=== PATIENT | male | born 1960 | race Two or more races ===

== ENCOUNTER 2025-05-06 22:25 | Inpatient (IN) | payer OTHER, MEDICARE ==
[~2025-05-06] VITALS: Ht 172.7 cm; Wt 97.4 kg
--- NOTE | 2025-05-06 22:58 | ED.PDOC ---
History of present illness HPI Comments 64-year-old male who came to the ER due to hyperglycemia. Patient states for the past 2 weeks has been having generalized weakness, myalgia, increased thirst and urination. Patient went to [facility] yesterday, blood sugar was 390, diagnosed with diabetes, but was sent home with no medications, was advised to go to his primary care provider. Patient able to get to the appointment with his PCP until next week, but noted that his blood sugar was 550 at home so he decided to come to the ER. Upon arrival, blood sugar here was 490 Chief Complaint: Hyperglycemia Time Seen by MD: 22:57 History of present illness: Nurses Notes Allergies: Coded Allergies: NO KNOWN ALLERGIES (Unverified , 05/06/25) Information Source: Patient Mode of Arrival: Ambulatory Timing: Days Duration: Intermittent [place]: Shaky, Sweaty Symptoms: Anxious, Shaky, Sweaty History of: Diabetes Past Medical History PAST MEDICAL HISTORY: DM Surgical History: Denies all surgeries Family History Family History: Reviewed,noncontributory to illness Social History Smoker: Non-Smoker Alcohol: Denies ETOH Use Drugs: Denies Drug Use Lives In: Home Constitutional: reports: weakness; denies: chills, diaphoresis, fatigue, fever, malaise, sweats, others EENTM: denies: blurred vision, double vision, ear bleeding, ear discharge, ear drainage, ear pain, ear ringing, eye pain, eye redness, hearing loss, mouth pain, mouth swelling, nasal discharge, nose bleeding, nose congestion, nose pain, photophobia, tearing, throat pain, throat swelling, voice changes, others Respiratory: denies: cough, hemoptysis, orthopnea, SOB at rest, shortness of breath, SOB with excertion, stridor, wheezing, others Cardiovascular: denies: chest pain, dizzy spells, diaphoresis, Dyspnea on exertion, edema, irregular heart beat, left arm pain, lightheadedness, palpitations, PND, syncope, others Gastrointestinal: denies: abdomen distended, abdominal pain, blood streaked bowels, constipated, diarrhea, dysphagia, difficulty swallowing, hematemesis, melena, nausea, poor appetite, poor fluid intake, rectal bleeding, rectal pain, vomiting, others Genitourinary: denies: burning, dysuria, flank pain, frequency, hematuria, incontinence, penile discharge, penile sore, pain, testicle pain, testicle swel ling, urgency, others Neurological: denies: dizziness, fainting, headache, left sided numbness, left sided weakness, numbness, paresthesia, pre-existing deficit, right sided numbness, right sided weakness, seizure, speech problems, tingling, tremors, weakness, others Musculoskeletal: denies: back pain, gout, joint pain, joint swelling, muscle pain, muscle stiffness, neck pain, others Integumetry: denies: bruises, change in color, change in hair/nails, dryness, laceration, lesions, lumps, rash, wounds, others Allergic/Immunocompromised: denies: Difficulty Healing, Frequent Infections, Hives, Itching, others Hematologic/Lymphatic: denies: anemia, blood clots, easy bleeding, easy bruising, swollen glands, others Endocrine: reports: excessive thirst, excessive urination; denies: excessive hunger, excessive sweating, flushing, intolerance to cold, intolerance to heat, unexplained weight gain, unexplained weight loss, others Psychiatric: denies: anxiety, bipolar disorder, depression, hopeless, panic disorder, schizophrenia, sleepless, suicidal, others Physical Exam General Appearance: No Apparent Distress, Normal HEENT: Normal ENT Inspection, Pharynx Normal, TMs Normal Neck: Full Range of Motion, Non-Tender, Normal, Normal Inspection Respiratory: Chest Non-Tender, Lungs Clear, No Accessory Muscle Use, No Respiratory Distress, Normal Breath Sounds Cardiovascular: No Edema, No JVD, No Murmur, No Gallop, Normal Peripheral Pulses, Regular Rate/Rhythm Breast Exam: Deferred Gastrointestinal: No Organomegaly, Non Tender, No Pulsatile Mass, Normal Bowel Sounds, Soft Genitalia: Deferred Pelvic: Deferred Rectal: Deferred Extremities: No calf tenderness, Normal capillary refill, Normal inspection, Normal range of motion, Non-tender, No pedal edema Musculoskeletal : Apperance: Normal Neurologic: Alert, breeding manager II-XII nml as Tested, No Motor Deficits, Normal Affect, Normal Mood, No Sensory Deficits Cerebellar Function: Normal Reflexes: Normal Skin: Dry, Normal Color, Warm Lymphatic: No Adenopathy Was a procedure done? Was a procedure done?: No Differential Diagnosis (DM) Differential Diagnosis: DKA, Hyperglycemia, UTI X-Ray, Labs, Meds, VS Vital Signs Date Time Temp Pulse Resp B/P (MAP) Pulse Ox O2 Delivery O2 Flow Rate FiO2 05/07/25 00:08 56 18 95 Room Air* 0 21 05/07/25 00:08 98.7 73 18 146/79 (101) 95 98.7 05/06/25 22:44 52 05/06/25 22:25 97.2 64 18 159/80 95 97.2 Lab Test 05/06/25 23:43 05/06/25 23:09 05/06/25 23:06 Range/Units Urine Color Colorless Yellow Urine Clarity Clear Clear Urine pH 5.5 5.0-9.0 Urine Specific [place] 1.035 1.001-1.035 Urine Protein Negative Negative Urine Ketones 1+ H Negative Urine Blood Trace H Negative /uL Urine Nitrite Negative Negative Urine Bilirubin Negative Negative Urine Urobilinogen Normal Negative mg/dL Urine Leukocyte Esterase Negative Negative /uL Urine RBC 1 0 - 3 /hpf Urine Microscopic WBC 4 H 0-3 /HPF Urine Squamous Epithelial Cells None seen <5 /hpf Urine Bacteria None seen None Seen /hpf Urine Glucose 4+ H Normal mg/dL White Blood Count 8.2 4.4-10.8 10^3/uL Red Blood Count 4.86 4.5-5.90 10^6/uL Hemoglobin 14.7 13.5-17.5 g/dL Hematocrit 42.6 41.0-53.0 % Mean Corpuscular Volume 87.7 80.0-100.0 fL Mean Corpuscular Hemoglobin 30.3 28.0-32.0 pg Mean Corpuscular Hemoglobin Concent 34.6 32.0-36.0 g/dL Red Cell Distribution Width 12.4 11.8-14.3 % Platelet Count 269 140-450 10^3/uL Mean Platelet Volume 8.1 6.9-10.8 fL Neutrophils (%) (Auto) 85.3 H 37.0-80.0 % Lymphocytes (%) (Auto) 12.2 10.0-50.0 % Monocytes (%) (Auto) 2.4 0.0-12.0 % Eosinophils (%) (Auto) 0.0 0.0-7.0 % Basophils (%) (Auto) 0.1 0.0-2.0 % Neutrophils # (Auto) 7.0 1.6-8.6 10 ^3/uL Lymphocytes # (Auto) 1.0 0.4-5.4 10 ^3/uL Monocytes # (Auto) 0.2 0-1.3 10 ^3/uL Eosinophils # (Auto) 0 0-0.8 10 ^3/uL Basophils # (Auto) 0 0-0.2 10 ^3/uL Nucleated Red Blood Cells 0.0 % Sodium Level 136 136-145 mmol/L Potassium Level 4.7 3.5-5.1 mmol/L Chloride Level 102 98-107 mmol/L Carbon Dioxide Level 23 20-31 mmol/L Anion Gap 11 5-15 Blood Urea Nitrogen 16 9-23 mg/dL Creatinine 1.11 0.700-1.30 mg/dL Glomerular Filtration Rate Calc 75 >90 mL/min BUN/Creatinine Ratio 14.4 10.0-20.0 Serum Glucose 485 *H 74-106 mg/dL Calcium Level 9.3 8.7-10.4 mg/dL Total Bilirubin 0.7 0.2-1.0 mg/dL Aspartate Amino Transferase (AST) 23 13-40 U/L Alanine Aminotransferase (ALT) 31 7-40 U/L Alkaline Phosphatase 123 H 46-116 U/L Total Protein 6.9 5.7-8.2 g/dL Albumin 4.4 3.2-4.8 g/dL Blood Gas Specimen Type Venous Blood Gas Sample Site Vbg - n/a Blood Gas Patient Temperature 37.0 Arterial Blood Date Drawn [id number] Ayan Test N/a Venous Blood pH 7.381 7.320-7.430 Venous Blood pCO2 at Patient Temp 42.0 38.0-54.0 mmHg Venous Blood pO2 at Patient Temp < 36.5 23.0-48.0 mmHg Venous Blood HCO3 24.3 22.0-29.0 mmol/L Venous Blood Base Excess -0.8 -2.0-3.0 mmol/L Blood Gas Modality Room air FiO2 % 21.0 Current Medications Medications (Trade) Dose Ordered Sig/Sulema Route Start Time Stop Time Status Last Admin Sodium Chloride 1,000 ml @ 1,000 mls/hr Q1H ONCE IV 05/06/25 23:00 05/06/25 23:59 DC 05/06/25 23:50 Time of 1ST Reevaluation: 22:53 Reevaluation 1ST: Unchanged Patient Education/Counseling: Diagnosis, Treatment Family Education/Counseling: No Family Present SEPSIS Sepsis Screen Date sepsis recognized/suspect: May 06, 2025 Time Sepsis recognized/suspect: 2224 Recent Procedure: No On Antibiotic Therapy: No Respiratory Rate >20: No Heart Rate >90: No Temp<36 C (96.8 F) or >38.3 C: No SBP <90 or MAP <65 mmHG: No New Acute Mental Status Change: No Is the patient on CPAP, BIPAP,: No Physician Orders Venous Blood Gas (05/06/25 22:52) Vital Signs Date Time Temp Pulse Resp B/P (MAP) Pulse Ox O2 Delivery O2 Flow Rate FiO2 05/07/25 00:08 56 18 95 Room Air* 0 21 05/07/25 00:08 98.7 73 18 146/79 (101) 95 98.7 05/06/25 22:44 52 05/06/25 22:25 97.2 64 18 159/80 95 97.2 Laboratory Tests Test 05/06/25 23:09 White Blood Count 8.2 10^3/uL (4.4-10.8) Medications Medications Dose Ordered Sig/Sulema Route Start Time Stop Time Status Last Admin Dose Admin Sodium Chloride 1,000 ml @ 1,000 mls/hr Q1H ONCE IV 05/06/25 23:00 05/06/25 23:59 DC 05/06/25 23:50 Departure 1 Departure Time of Disposition: 00:13 Impression: Primary Impression: Hyperglycemia Additional Impression: New onset type 2 diabetes mellitus Disposition: ADMITTED INPATIENT Admit to: Med Surg Condition: Guarded Discharged With: Self Comments 64-year-old male with very high blood sugars, polydipsia and polyuria. Patient states that he had an A1c yesterday that showed over 10. Patient appears to have new onset diabetes that is uncontrolled. Patient was given IV fluids and a little bit of insulin. Patient will need admission for supportive care and further workup. Critical Care Note Critical Care Time?: Yes (35 min-critical care time only) Critical care comment: Hyperglycemia Stability Stability form required: No Heart Score Heart Score: Heart Score Response (Comments) Value History N/A 0 EKG N/A 0 Age N/A 0 Risk Factors N/A 0 Troponin N/A 0 Total 0 I personally scribed for SHARON ABEL MD ([email or web address]) on 05/06/25 at 22:58. Electronically submitted by Ankit Murphy ([email or web address]). SHARON ABEL MD May 06, 2025 22:58
--- NOTE | 2025-05-06 22:58 | ECG ---
[facility] Test Date: 2025-05-06 Test Time: 22:44:24 Pat Name: SUSY FUCHS Department: ED Room: [address] [place] [address] Gender: M Manager Fleet: jesse : 1960 Requested By: SHARON ABEL Order Number: [id number] Reading MD: Yunior Das Measurements Intervals [place] Rate: 52 P: 18 IN: 147 QRS: -33 QRSD: 106 T: 49 QT: 438 QTc: 408 Interpretive Statements Sinus rhythm Left axis deviation Electronically Signed On 05-08-2025 18:46:37 PDT by Yunior Das Please click the below link to view image of tracing.
[2025-05-06 23:26] LABS: Hematocrit 42.6 % (41.0-53.0); Hemoglobin 14.7 g/dL (13.5-17.5); Mean Corpuscular Hemoglobin 30.3 pg (28.0-32.0); Mean Corpuscular Volume 87.7 fL (80.0-100.0); Nucleated Red Blood Cells % 0.0 %
[2025-05-06 23:48] LABS: Alanine Aminotransferase 31 U/L (7-40); Albumin 4.4 g/dL (3.2-4.8); Anion Gap 11 (5-15); BUN/Creatinine Ratio 14.4 (10.0-20.0); Bilirubin, Total 0.7 mg/dL (0.2-1.0); Blood Urea Nitrogen 16 mg/dL (9-23); Calcium 9.3 mg/dL (8.7-10.4); Carbon Dioxide 23 mmol/L (20-31); Chloride 102 mmol/L (98-107); Potassium 4.7 mmol/L (3.5-5.1); Sodium 136 mmol/L (136-145); Total Protein 6.9 g/dL (5.7-8.2)
[2025-05-06 23:49] LABS: Alkaline Phosphatase 123 U/L (46-116)
[2025-05-06] MEDS: SODIUM CHLORIDE 0.9% 1,000 ML IV ONE (23:50)
[2025-05-06 23:51] LABS: Glucose 485 mg/dL (74-106)
[2025-05-06 23:56] LABS: Urine Protein, UAD Negative (Negative)
[2025-05-07] VITALS (7 sets, daily range): BP systolic 112–171; BP diastolic 60–79; PULSE 42–60; RESP 12–20; TEMP 97.2–98.2; O2SAT 94–95
[2025-05-07] MEDS: InsuLIN REG 1unit/0.01ml Soln (100units/ml) SC ONE (01:31)
[2025-05-07] MEDS ORDERED: ONDANSETRON HCL 4 MG/2 ML VIAL IV PRN (02:30)
[2025-05-07] MEDS ORDERED: DEXTROSE (50%) 50ML SYRG IV PRN (02:30)
[2025-05-07] MEDS ORDERED: HYDROcodone-ACET 5/325MG TAB PO PRN (02:30)
--- NOTE | 2025-05-07 02:57 | DVHHP2 ---
History of Present Illness Reason for Visit: New onset type 2 diabetes mellitus History of Present Illness The patient is a 64-year-old male with past medical history of diabetes mellitus 2 days ago presented to [facility] ED for evaluation of elevated blood sugar. Patient went to [facility] yesterday, blood sugar was 390, diagnosed with initial diabetes, but was sent home with no medications, was advised to go to his primary care provider. Patient was unable to get to the appointment with his PCP until next week, but noted that his blood sugar was 550 at home with associated increased thirst, urination, generalized weakness, and myalgia, so he decided to come to the ER. Patient was seen and evaluated in the ED, laboratory data shows WBC 8.2, platelets 269, sodium 136, potassium 4.1, BUN 16, creatinine 1.11, glucose 485, anion gap 11, calcium 9.3, blood pressure 146/79, heart rate 72, temperature 98.7 F, O2 saturation 96% on room air. Please see medication orders section in the computer. On my assessment, patient denied chest pain, no headache, dizziness, diaphoresis, shortness of breaths, no abdominal pain, diarrhea, nausea, vomiting, fever, no chills. Patient was admitted for further evaluation and medical management. Past Medical History DM Past Surgical History Denies all surgeries Family History Reviewed, noncontributory to the management of this case. Past Social History The patient lives at home, denies smoking, alcohol or illicit drugs abuse. Review of Systems Constitutional: Yes: Weakness; No: Fever, Chills, Sweats, Malaise, Other Eyes: No: Pain, Vision change, Conjunctivae inflammation, Eyelid inflammation, Other, Redness ENT: No: Ear pain, Ear discharge, Nose pain, Nose discharge, Nose congestion, Mouth pain, Mouth swelling, Throat pain, Throat swelling, Other Respiratory: No: Cough, Dry, Shortness of breath, SOB with excertion, Wheezing, Hemoptysis, Pleuritic Pain, Sputum, Wheezing, Other Cardiovascular: No: Chest Pain, Palpitations, Orthopnea, Paroxysmal Noc. Dyspnea, Edema, Lt Headedness, Other Gastrointestinal: No: Nausea, Vomiting, Abdominal Pain, Diarrhea, Constipation, Melena, Hematochezia, Other Genitourinary: No Dysuria, No Frequency, No Incontinence, No Hematuria, No Retention, No Other Musculoskeletal: No: other, neck pain, shoulder pain, arm pain, back pain, hand pain, leg pain, foot pain Skin: No: Rash, Lesions, Jaundice, Bruising, Other Neurological: No: Weakness, Numbness, Incoordination, Change in speech, Confusion, Seizures, Other Other Endocrine: reports: excessive thirst, excessive urination; denies: excessive hunger, excessive sweating, flushing, intolerance to cold, intolerance to heat, unexplained weight gain, unexplained weight loss, others Allergies: Coded Allergies: NO KNOWN ALLERGIES (Unverified , 05/06/25) Medications Current Medications Medications Dose Ordered Sig/Sulema Route Start Time Stop Time Status Last Admin Dose Admin Diagnostic Test (Pha) 1 strip IQ4HR 05/07/25 04:00 Insulin Human Regular IQ4HR SC 05/07/25 04:00 Dextrose 50 ml UD PRN IV 05/07/25 02:30 Sodium Chloride 1,000 ml @ 60 mls/hr [id number] IV 05/07/25 02:30 Acetaminophen/ Hydrocodone Bitart 1 tab Q4HP PRN PO 05/07/25 02:30 Ondansetron HCl 4 mg Q4HP PRN IV 05/07/25 02:30 Docusate Sodium 100 mg BIDPRN PRN PO 05/07/25 02:30 Acetaminophen 650 mg Q6HP PRN PO 05/07/25 02:30 Exam Vital Signs Vital Signs Date Time Temp Pulse Resp B/P (MAP) Pulse Ox O2 Delivery O2 Flow Rate FiO2 05/07/25 02:47 97.8 52 14 158/80 (106) 95 97.8 05/07/25 00:08 Room Air* 0 21 General Appearance: Alert, Oriented X3, Cooperative, No acute distress HEENT: Atraumatic, PERRLA, EOMI, Mucous membr. moist/pink Respiratory: Clear to auscultation, Normal air movement Cardiovascular: Regular rate, Normal S1, Normal S2, No murmurs Abdominal: Normal bowel sounds, Soft, No tenderness, No hepatospenomegaly, No masses Extremities: No clubbing, No cyanosis, No edema, Normal pulses, No tenderness/swelling Skin: No rashes, No breakdown, No significant lesion Neuro: Normal speech, Normal tone, Sensation intact, Cranial nerves 3-12 NL, Reflexes 2+, Other (Generalized weakness) Psych/Mental Status: Mental status NL, Mood NL Labs/Xrays Labs Test 05/07/25 01:29 05/06/25 23:43 05/06/25 23:09 05/06/25 23:06 Range/Units POC Glucose 358 H 70-106 mg/dl Urine Color Colorless Yellow Urine Clarity Clear Clear Urine pH 5.5 5.0-9.0 Urine Specific [place] 1.035 1.001-1.035 Urine Protein Negative Negative Urine Ketones 1+ H Negative Urine Blood Trace H Negative /uL Urine Nitrite Negative Negative Urine Bilirubin Negative Negative Urine Urobilinogen Normal Negative mg/dL Urine Leukocyte Esterase Negative Negative /uL Urine RBC 1 0 - 3 /hpf Urine Microscopic WBC 4 H 0-3 /HPF Urine Squamous Epithelial Cells None seen <5 /hpf Urine Bacteria None seen None Seen /hpf Urine Glucose 4+ H Normal mg/dL White Blood Count 8.2 4.4-10.8 10^3/uL Red Blood Count 4.86 4.5-5.90 10^6/uL Hemoglobin 14.7 13.5-17.5 g/dL Hematocrit 42.6 41.0-53.0 % Mean Corpuscular Volume 87.7 80.0-100.0 fL Mean Corpuscular Hemoglobin 30.3 28.0-32.0 pg Mean Corpuscular Hemoglobin Concent 34.6 32.0-36.0 g/dL Red Cell Distribution Width 12.4 11.8-14.3 % Platelet Count 269 140-450 10^3/uL Mean Platelet Volume 8.1 6.9-10.8 fL Neutrophils (%) (Auto) 85.3 H 37.0-80.0 % Lymphocytes (%) (Auto) 12.2 10.0-50.0 % Monocytes (%) (Auto) 2.4 0.0-12.0 % Eosinophils (%) (Auto) 0.0 0.0-7.0 % Basophils (%) (Auto) 0.1 0.0-2.0 % Neutrophils # (Auto) 7.0 1.6-8.6 10 ^3/uL Lymphocytes # (Auto) 1.0 0.4-5.4 10 ^3/uL Monocytes # (Auto) 0.2 0-1.3 10 ^3/uL Eosinophils # (Auto) 0 0-0.8 10 ^3/uL Basophils # (Auto) 0 0-0.2 10 ^3/uL Nucleated Red Blood Cells 0.0 % Sodium Level 136 136-145 mmol/L Potassium Level 4.7 3.5-5.1 mmol/L Chloride Level 102 98-107 mmol/L Carbon Dioxide Level 23 20-31 mmol/L Anion Gap 11 5-15 Blood Urea Nitrogen 16 9-23 mg/dL Creatinine 1.11 0.700-1.30 mg/dL Glomerular Filtration Rate Calc 75 >90 mL/min BUN/Creatinine Ratio 14.4 10.0-20.0 Serum Glucose 485 *H 74-106 mg/dL Calcium Level 9.3 8.7-10.4 mg/dL Total Bilirubin 0.7 0.2-1.0 mg/dL Aspartate Amino Transferase (AST) 23 13-40 U/L Alanine Aminotransferase (ALT) 31 7-40 U/L Alkaline Phosphatase 123 H 46-116 U/L Total Protein 6.9 5.7-8.2 g/dL Albumin 4.4 3.2-4.8 g/dL Blood Gas Specimen Type Venous Blood Gas Sample Site Vbg - n/a Blood Gas Patient Temperature 37.0 Arterial Blood Date Drawn [id number] Ayan Test N/a Venous Blood pH 7.381 7.320-7.430 Venous Blood pCO2 at Patient Temp 42.0 38.0-54.0 mmHg Venous Blood pO2 at Patient Temp < 36.5 23.0-48.0 mmHg Venous Blood HCO3 24.3 22.0-29.0 mmol/L Venous Blood Base Excess -0.8 -2.0-3.0 mmol/L Blood Gas Modality Room air FiO2 % 21.0 SEPSIS Sepsis Screen Date sepsis recognized/suspect: May 06, 2025 Time Sepsis recognized/suspect: 2224 Recent Procedure: No On Antibiotic Therapy: No Respiratory Rate >20: No Heart Rate >90: No Temp<36 C (96.8 F) or >38.3 C: No SBP <90 or MAP <65 mmHG: No New Acute Mental Status Change: No Is the patient on CPAP, BIPAP,: No Physician Orders Venous Blood Gas (05/06/25 22:52) Hemoglobin A1c (05/07/25 02:16) Complete Blood Count (05/07/25 04:00) Comprehensive Metabolic Panel (05/07/25 04:00) Consistent Carb(Ccho)Diabetes (05/07/25 Breakfast) Glucose Blood (Accu-Chek Comfort Curve T (05/07/25 04:00) Insulin R (Human) (Insulin R) (05/07/25 04:00) Dextrose 50% Syringe (05/07/25 02:30) Allergies (05/07/25 02:16) Code Status (05/07/25 02:16) Sodium Chloride 0.9% (05/07/25 02:30) Oxygen Per Hour (05/07/25 02:16) Hydrocodone-Acet 5/325mg Tab ([place] 5/32 (05/07/25 02:30) Ondansetron Hcl (Zofran) (05/07/25 02:30) Docusate Sodium Capsule (Colace Capsule) (05/07/25 02:30) Fall Risk Precautions In Place QSHIFT (05/07/25 02:16) Complete Blood Count (05/08/25 04:00) Comprehensive Metabolic Panel (05/08/25 04:00) Condition: Serious (05/07/25 02:16) Acetaminophen Tablet (Tylenol Tablet) (05/07/25 02:30) Maintain Bed Rest (05/07/25 02:16) Sequential Compression Device (05/07/25 ) Vital Signs Date Time Temp Pulse Resp B/P (MAP) Pulse Ox O2 Delivery O2 Flow Rate FiO2 05/07/25 02:47 97.8 52 14 158/80 (106) 95 97.8 05/07/25 00:08 56 18 95 Room Air* 0 21 05/07/25 00:08 98.7 73 18 146/79 (101) 95 98.7 05/06/25 22:44 52 05/06/25 22:25 97.2 64 18 159/80 95 97.2 Laboratory Tests Test 05/06/25 23:09 White Blood Count 8.2 10^3/uL (4.4-10.8) Medications Medications Dose Ordered Sig/Sulema Route Start Time Stop Time Status Last Admin Dose Admin Insulin Human Regular 2 units ONCE ONCE SC 05/06/25 23:00 05/06/25 23:01 DC 05/07/25 01:31 2 UNITS Sodium Chloride 1,000 ml @ 1,000 mls/hr Q1H ONCE IV 05/06/25 23:00 05/06/25 23:59 DC 05/06/25 23:50 1,000 MLS/HR Assessment/Plan Assessment/Plan Hyperglycemia Generalized weakness New onset type 2 diabetes mellitus Plan 1. Admit to telemetry unit 2. Breathing treatment 3. Pain control management 4. Management of fluids and electrolytes 5. Consultation for hospitalist/dietary consult 6. Diagnostic tests chest x-ray 7. DVT prophylaxis-on SCDs 8. Repeat labs CBC, CMP in a.m. 9. Continue with current medical management 10. Treatment plan discussed with patient and RN. Patient verbalized understanding. Plan discussed with: Patient, Other (RN) My Orders Orders - GAMAL SNIDER DNP Procedure Category Date Status Time Hemoglobin A1c LAB 05/07/25 Logged 02:16 Complete Blood Count LAB 05/07/25 Logged 04:00 Comprehensive LAB 05/07/25 Logged Metabolic Panel 04:00 Consistent DIET 05/07/25 Transmitted Carb(Ccho)Diabetes Breakfast Glucose Blood PHA 05/07/25 In Process (Accu-Chek Comfort 04:00 Insulin R (Human) PHA 05/07/25 In Process (Insulin R) 04:00 Dextrose 50% Syringe PHA 05/07/25 In Process 02:30 Allergies RICHARD 05/07/25 In Process 02:16 Code Status CODE 05/07/25 Transmitted 02:16 Sodium Chloride 0.9% PHA 05/07/25 In Process 02:30 Oxygen Per Hour RT 05/07/25 Transmitted 02:16 Hydrocodone-Acet PHA 05/07/25 In Process 5/325mg Tab ([place] 02:30 Ondansetron Hcl PHA 05/07/25 In Process (Zofran) 02:30 Docusate Sodium PHA 05/07/25 In Process Capsule (Colace 02:30 Fall Risk Precautions RICHARD 05/07/[address] 02:16 Complete Blood Count LAB 05/08/25 Verified 04:00 Comprehensive LAB 05/08/25 Verified Metabolic Panel 04:00 Condition: Serious RICHARD 05/07/25 In Process 02:16 Acetaminophen Tablet PHA 05/07/25 In Process (Tylenol Tablet) 02:30 Maintain Bed Rest RICHARD 05/07/25 In Process 02:16 Sequential RICHARD 05/07/25 In Process Compression Device Problem List: (1) Hyperglycemia (2) Generalized weakness (3) New onset type 2 diabetes mellitus Date of Service: May 07, 2025 Billing Provider: GAMAL SNIDER DNP Common Visit Codes: [id number] INP/OBS CARE (HIGH) GAMAL SNIDER DNP May 07, 2025 02:57
[2025-05-07] MEDS ORDERED: NITROGLYCERIN 0.4 MG SL TAB SL PRN (03:00)
[2025-05-07] MEDS ORDERED: MORPHINE SULFATE INJ 2 MG/ml SYRG IV PRN (03:00)
[2025-05-07] MEDS: InsuLIN REG 1unit/0.01ml Soln (100units/ml) SC SCH (04:00)
[2025-05-07] MEDS: ACCU-CHEK COMFORT CURVE STRIP VI SCH (04:00)
[2025-05-07] MEDS: SODIUM CHLORIDE 0.9% 1,000 ML IV SCH (05:36)
[2025-05-07] MEDS: ACETAMINOPHEN 325 MG TAB PO PRN (05:44)
[2025-05-07 06:05] LABS: Hematocrit 41.1 % (41.0-53.0); Hemoglobin 14.4 g/dL (13.5-17.5); Mean Corpuscular Hemoglobin 30.1 pg (28.0-32.0); Mean Corpuscular Volume 86.0 fL (80.0-100.0); Nucleated Red Blood Cells % 0.1 %
[2025-05-07 06:23] LABS: Alanine Aminotransferase 29 U/L (7-40); Albumin 4.4 g/dL (3.2-4.8); Alkaline Phosphatase 107 U/L (46-116); Anion Gap 12 (5-15); BUN/Creatinine Ratio 12.6 (10.0-20.0); Blood Urea Nitrogen 13 mg/dL (9-23); Calcium 9.3 mg/dL (8.7-10.4); Carbon Dioxide 25 mmol/L (20-31); Chloride 103 mmol/L (98-107); Glucose 337 mg/dL (74-106); Potassium 4.5 mmol/L (3.5-5.1); Sodium 140 mmol/L (136-145); Total Protein 7.1 g/dL (5.7-8.2)
[2025-05-07 06:24] LABS: Bilirubin, Total 0.9 mg/dL (0.2-1.0)
[2025-05-07] MEDS ORDERED: PANT40TA2 PO (12:05)
[2025-05-07] MEDS ORDERED: CHOL1TAB30 PO (12:06)
[2025-05-07] MEDS ORDERED: METO-289 PO (12:07)
[2025-05-07] MEDS ORDERED: CLOP75TA70 PO (12:08)
[2025-05-07] MEDS ORDERED: AMLO1TAB22 PO (12:08)
[2025-05-07] MEDS ORDERED: ATOR-47 PO (12:10)
[2025-05-07] MEDS ORDERED: ONDA-155 PO (12:11)
[2025-05-07] MEDS ORDERED: CLON-853 PO (12:12)
[2025-05-07] MEDS ORDERED: CLON-1003 PO (12:14)
[2025-05-07] MEDS ORDERED: QUET100T47 PO (12:15)
[2025-05-07] MEDS ORDERED: MECL-90 PO (12:16)
--- NOTE | 2025-05-07 15:07 | DVHPN2 ---
Changes from previous H/P or p: No Changes Objective Vitals Vital Signs Date Time Temp Pulse Resp B/P (MAP) Pulse Ox O2 Delivery O2 Flow Rate FiO2 05/07/25 12:33 171/79 05/07/25 09:00 98.2 60 12 95 98.2 05/07/25 00:08 Room Air* 0 21 Medications Current Medications Medications Dose Ordered Sig/Sulema Route Start Time Stop Time Status Last Admin Dose Admin Diagnostic Test (Pha) 1 strip IQ4HR 05/07/25 04:00 05/07/25 12:34 1 STRIP Insulin Human Regular IQ4HR SC 05/07/25 04:00 05/07/25 12:41 12 UNITS Dextrose 50 ml UD PRN IV 05/07/25 02:30 Sodium Chloride 1,000 ml @ 60 mls/hr [id number] IV 05/07/25 02:30 05/07/25 05:36 60 MLS/HR Acetaminophen/ Hydrocodone Bitart 1 tab Q4HP PRN PO 05/07/25 02:30 Ondansetron HCl 4 mg Q4HP PRN IV 05/07/25 02:30 Docusate Sodium 100 mg BIDPRN PRN PO 05/07/25 02:30 Acetaminophen 650 mg Q6HP PRN PO 05/07/25 02:30 05/07/25 12:33 650 MG Nitroglycerin 0.4 mg Q5MINP PRN SL 05/07/25 03:00 Morphine Sulfate 2 mg Q30M PRN IV 05/07/25 03:00 Clonidine HCl 0.2 mg Q6HPRN PRN PO 05/07/25 12:30 05/07/25 12:33 0.2 MG Laboratory Results Laboratory Tests 05/07/25 05:00 Chemistry Test 05/06/25 23:09 05/07/25 05:00 Albumin 4.4 g/dL (3.2-4.8) 4.4 g/dL (3.2-4.8) Calcium Level 9.3 mg/dL (8.7-10.4) 9.3 mg/dL (8.7-10.4) Total Protein 6.9 g/dL (5.7-8.2) 7.1 g/dL (5.7-8.2) LFT Test 05/06/25 23:09 05/07/25 05:00 Alanine Aminotransferase (ALT) 31 U/L (7-40) 29 U/L (7-40) Alkaline Phosphatase 123 U/L (46-116) H 107 U/L (46-116) Aspartate Amino Transferase (AST) 23 U/L (13-40) 20 U/L (13-40) Total Bilirubin 0.7 mg/dL (0.2-1.0) 0.9 mg/dL (0.2-1.0) HgA1c, TSH Test 05/07/25 05:00 Hemoglobin A1c 11.9 % A1C (<5.7) H Urinalysis Test 05/06/25 23:43 Urine Color Colorless (Yellow) Urine Clarity Clear (Clear) Urine pH 5.5 (5.0-9.0) Urine Specific [place] 1.035 (1.001-1.035) Urine Protein Negative (Negative) Urine Ketones 1+ (Negative) H Urine Blood Trace /uL (Negative) H Urine Nitrite Negative (Negative) Urine Bilirubin Negative (Negative) Urine Urobilinogen Normal mg/dL (Negative) Urine Leukocyte Esterase Negative /uL (Negative) Urine RBC 1 /hpf (0 - 3) Urine Microscopic WBC 4 /HPF (0-3) H Urine Squamous Epithelial Cells None seen /hpf (<5) Urine Bacteria None seen /hpf (None Seen) Urine Glucose 4+ mg/dL (Normal) H Blood Gas Results Test 05/06/25 23:06 FiO2 % 21.0 Labs and/or images reviewed: Labs reviewed by me, Image(s) reviewed by me Assessment/Plan Assessment/Plan Acute generalized weakness Acute metabolic encephalopathy Acute hyperglycemia with blood sugars 500: Aggressive insulin sliding scale, A1c 11.9 New onset diabetes patient was seen in [place] one week ago and was sent home without any diabetes medications per patient Acute dehydration: IV fluids Time spent 50 minutes Advanced care planning time 20 minutes Patient is full code Plan discussed with: Patient My Orders Orders - STEVEN ROMERO MD Procedure Category Date Status Time Clonidine Hcl Tablet PHA 05/07/25 In Process (Catapres Tablet) 12:30 Date of Service: May 07, 2025 Billing Provider: STEVEN ROMERO MD Common Visit Codes: [id number] INP/OBS CARE(HIGH) Secondary Visit Codes: [id number] CARE PLAN 30 MINUTES STEVEN ROMERO MD May 07, 2025 15:07
[2025-05-08 05:05] LABS: Hematocrit 40.6 % (41.0-53.0); Hemoglobin 14.2 g/dL (13.5-17.5); Mean Corpuscular Hemoglobin 30.4 pg (28.0-32.0); Mean Corpuscular Volume 86.8 fL (80.0-100.0); Nucleated Red Blood Cells % 0.0 %
[2025-05-08 05:35] LABS: Alanine Aminotransferase 26 U/L (7-40); Albumin 4.0 g/dL (3.2-4.8); Alkaline Phosphatase 88 U/L (46-116); Anion Gap 13 (5-15); BUN/Creatinine Ratio 13.0 (10.0-20.0); Blood Urea Nitrogen 13 mg/dL (9-23); Carbon Dioxide 26 mmol/L (20-31); Chloride 103 mmol/L (98-107); Sodium 142 mmol/L (136-145); Total Protein 6.6 g/dL (5.7-8.2)
[2025-05-08 05:39] LABS: Bilirubin, Total 0.8 mg/dL (0.2-1.0)
[2025-05-08 05:46] LABS: Calcium 8.5 mg/dL (8.7-10.4); Glucose 207 mg/dL (74-106); Potassium 3.0 mmol/L (3.5-5.1)
[2025-05-08 09:00] VITALS: BP 144/76; PULSE 47; RESP 17; TEMP 98.2; O2SAT 97
[2025-05-08] MEDS: DOCUSATE SOD 100 MG CAP PO PRN (11:52)
[2025-05-08 13:00] VITALS: BP 153/69; PULSE 53; RESP 18; TEMP 98.4; O2SAT 94
--- NOTE | 2025-05-08 13:54 | DVHPN2 ---
Reviewed: Care Plan, H&P, Labs, Medications, Previous Orders, Radiology Changes from previous H/P or p: No Changes Eyes: No Pain, No Vision change, No Conjunctivae inflammation, No Eyelid inflammation, No Other, No Redness ENT: No Ear pain, No Ear discharge, No Nose pain, No Nose discharge, No Nose congestion, No Mouth pain, No Mouth swelling, No Throat pain, No Throat swelling, No Other Cardiovascular: No Chest Pain, No Palpitations, No Orthopnea, No Paroxysmal Noc. Dyspnea, No Edema, No Lt Headedness, No Other Respiratory: No Cough, No Dry, No Shortness of breath, No SOB with excertion, No Wheezing, No Hemoptysis, No Pleuritic Pain, No Sputum, No Other Gastrointestinal: No Nausea, No Vomiting, No Abdominal Pain, No Diarrhea, No Constipation, No Melena, No Hematochezia, No Other Genitourinary: No Dysuria, No Frequency, No Incontinence, No Hematuria, No Retention, No Other Musculoskeletal: No other, No neck pain, No shoulder pain, No arm pain, No back pain, No hand pain, No leg pain, No foot pain Skin: No Rash, No Lesions, No Jaundice, No Bruising, No Other Objective Vitals Vital Signs Date Time Temp Pulse Resp B/P (MAP) Pulse Ox O2 Delivery O2 Flow Rate FiO2 05/08/25 13:00 98.4 53 18 153/69 (97) 94 98.4 05/07/25 00:08 Room Air* 0 21 Intake/Output Intake and Output 05/08/25 07:00 Intake Total 920 ml Balance 920 ml Intake Oral 920 ml # Voids 4 Medications Current Medications Medications Dose Ordered Sig/Sulema Route Start Time Stop Time Status Last Admin Dose Admin Diagnostic Test (Pha) 1 strip IQ4HR 05/07/25 04:00 05/08/25 11:37 1 STRIP Insulin Human Regular IQ4HR SC 05/07/25 04:00 05/08/25 11:47 12 UNITS Dextrose 50 ml UD PRN IV 05/07/25 02:30 Sodium Chloride 1,000 ml @ 60 mls/hr [id number] IV 05/07/25 02:30 05/08/25 11:30 60 MLS/HR Acetaminophen/ Hydrocodone Bitart 1 tab Q4HP PRN PO 05/07/25 02:30 Ondansetron HCl 4 mg Q4HP PRN IV 05/07/25 02:30 Docusate Sodium 100 mg BIDPRN PRN PO 05/07/25 02:30 05/08/25 11:52 100 MG Acetaminophen 650 mg Q6HP PRN PO 05/07/25 02:30 05/07/25 12:33 650 MG Nitroglycerin 0.4 mg Q5MINP PRN SL 05/07/25 03:00 Morphine Sulfate 2 mg Q30M PRN IV 05/07/25 03:00 Clonidine HCl 0.2 mg Q6HPRN PRN PO 05/07/25 12:30 05/07/25 12:33 0.2 MG Laboratory Results Laboratory Tests 05/08/25 04:41 Chemistry Test 05/08/25 04:41 Albumin 4.0 g/dL (3.2-4.8) Calcium Level 8.5 mg/dL (8.7-10.4) L Total Protein 6.6 g/dL (5.7-8.2) LFT Test 05/08/25 04:41 Alanine Aminotransferase (ALT) 26 U/L (7-40) Alkaline Phosphatase 88 U/L (46-116) Aspartate Amino Transferase (AST) 21 U/L (13-40) Total Bilirubin 0.8 mg/dL (0.2-1.0) Urinalysis Test 05/06/25 23:43 Urine Color Colorless (Yellow) Urine Clarity Clear (Clear) Urine pH 5.5 (5.0-9.0) Urine Specific [place] 1.035 (1.001-1.035) Urine Protein Negative (Negative) Urine Ketones 1+ (Negative) H Urine Blood Trace /uL (Negative) H Urine Nitrite Negative (Negative) Urine Bilirubin Negative (Negative) Urine Urobilinogen Normal mg/dL (Negative) Urine Leukocyte Esterase Negative /uL (Negative) Urine RBC 1 /hpf (0 - 3) Urine Microscopic WBC 4 /HPF (0-3) H Urine Squamous Epithelial Cells None seen /hpf (<5) Urine Bacteria None seen /hpf (None Seen) Urine Glucose 4+ mg/dL (Normal) H Labs and/or images reviewed: Labs reviewed by me, Image(s) reviewed by me Assessment/Plan Assessment/Plan Acute generalized weakness Acute metabolic encephalopathy Acute hyperglycemia with blood sugars 500: Aggressive insulin sliding scale, A1c 11.9 New onset diabetes patient was seen in [place] one week ago and was sent home without any diabetes medications per patient Acute dehydration: IV fluids Time spent 48 minutes Advanced care planning time 20 minutes Patient is full code Plan discussed with: Patient Date of Service: May 08, 2025 Billing Provider: STEVEN ROMERO MD Common Visit Codes: [id number] INP/OBS CARE(HIGH) STEVEN ROMERO MD May 08, 2025 13:54
[2025-05-08 17:00] VITALS: BP 144/72; PULSE 65; RESP 17; TEMP 98.5; O2SAT 94
--- NOTE | 2025-05-09 08:27 | DVHDS2 ---
Discharge Summary Date of Admission May 07, 2025 at 02:55 Date of Discharge: May 08, 2025 Admitting Diagnosis Generalized weakness secondary to uncontrolled new onset diabetes Wounds: None Labs/Diagnostic Data: Laboratory Results Test 05/08/25 15:41 05/08/25 04:41 05/07/25 05:00 05/06/25 23:43 POC Glucose 264 mg/dl (70-106) White Blood Count 8.6 10^3/uL (4.4-10.8) Red Blood Count 4.68 10^6/uL (4.5-5.90) Hemoglobin 14.2 g/dL (13.5-17.5) Hematocrit 40.6 % (41.0-53.0) Mean Corpuscular Volume 86.8 fL (80.0-100.0) Mean Corpuscular Hemoglobin 30.4 pg (28.0-32.0) Mean Corpuscular Hemoglobin Concent 35.0 g/dL (32.0-36.0) Red Cell Distribution Width 12.6 % (11.8-14.3) Platelet Count 267 10^3/uL (140-450) Mean Platelet Volume 7.9 fL (6.9-10.8) Neutrophils (%) (Auto) 70.0 % (37.0-80.0) Lymphocytes (%) (Auto) 24.2 % (10.0-50.0) Monocytes (%) (Auto) 5.5 % (0.0-12.0) Eosinophils (%) (Auto) 0.1 % (0.0-7.0) Basophils (%) (Auto) 0.2 % (0.0-2.0) Neutrophils # (Auto) 6.0 10 ^3/uL (1.6-8.6) Lymphocytes # (Auto) 2.1 10 ^3/uL (0.4-5.4) Monocytes # (Auto) 0.5 10 ^3/uL (0-1.3) Eosinophils # (Auto) 0 10 ^3/uL (0-0.8) Basophils # (Auto) 0 10 ^3/uL (0-0.2) Nucleated Red Blood Cells 0.0 % Sodium Level 142 mmol/L (136-145) Potassium Level 3.0 mmol/L (3.5-5.1) Chloride Level 103 mmol/L (98-107) Carbon Dioxide Level 26 mmol/L (20-31) Anion Gap 13 (5-15) Blood Urea Nitrogen 13 mg/dL (9-23) Creatinine 1.00 mg/dL (0.700-1.30) Glomerular Filtration Rate Calc 85 mL/min (>90) BUN/Creatinine Ratio 13.0 (10.0-20.0) Serum Glucose 207 mg/dL (74-106) Calcium Level 8.5 mg/dL (8.7-10.4) Total Bilirubin 0.8 mg/dL (0.2-1.0) Aspartate Amino Transferase (AST) 21 U/L (13-40) Alanine Aminotransferase (ALT) 26 U/L (7-40) Alkaline Phosphatase 88 U/L (46-116) Total Protein 6.6 g/dL (5.7-8.2) Albumin 4.0 g/dL (3.2-4.8) Hemoglobin A1c 11.9 % A1C (<5.7) Urine Color Colorless (Yellow) Urine Clarity Clear (Clear) Urine pH 5.5 (5.0-9.0) Urine Specific [place] 1.035 (1.001-1.035) Urine Protein Negative (Negative) Urine Ketones 1+ (Negative) Urine Blood Trace /uL (Negative) Urine Nitrite Negative (Negative) Urine Bilirubin Negative (Negative) Urine Urobilinogen Normal mg/dL (Negative) Urine Leukocyte Esterase Negative /uL (Negative) Urine RBC 1 /hpf (0 - 3) Urine Microscopic WBC 4 /HPF (0-3) Urine Squamous Epithelial Cells None seen /hpf (<5) Urine Bacteria None seen /hpf (None Seen) Urine Glucose 4+ mg/dL (Normal) Test 05/06/25 23:06 Blood Gas Specimen Type Venous Blood Gas Sample Site Vbg - n/a Blood Gas Patient Temperature 37.0 Arterial Blood Date Drawn [id number] Ayan Test N/a Venous Blood pH 7.381 (7.320-7.430) Venous Blood pCO2 at Patient Temp 42.0 mmHg (38.0-54.0) Venous Blood pO2 at Patient Temp < 36.5 mmHg (23.0-48.0) Venous Blood HCO3 24.3 mmol/L (22.0-29.0) Venous Blood Base Excess -0.8 mmol/L (-2.0-3.0) Blood Gas Modality Room air FiO2 % 21.0 Other Laboratory Tests 05/08/25 04:41 Brief Hx & Hospital Course: 64-year-old male with no previous medical illnesses came in for acute generalized weakness found to have new onset type 2 diabetes with blood sugars 500 A1c 11.9 treated with the aggressive insulin sliding scale patient was educated about the diabetes and complications. He was seen in the ER holding area. The patient was diagnosed at [facility] one week ago with a new onset diabetes and per patient he was sent home without any diabetes medications While awaiting bed on the floor the patient decided to leave AMA from the ER and left AMA. Consequences and complications including possible explained to the patient and he verbalized understanding . He left AMA. It Is not known whether he also left AMA from [facility] Blood sugars around 250 at the time of leaving AMA Consults/Reason for consult None Operations or Procedures None Condition at Discharge: Fair Final Diagnosis/Problems List Acute generalized weakness Acute metabolic encephalopathy Acute hyperglycemia with blood sugars 500: Aggressive insulin sliding scale, A1c 11.9 New onset diabetes patient was seen in [place] one week ago and was sent home without any diabetes medications per patient Acute dehydration: IV fluids Discharge Disposition: AMA Discharge Instruct/Medications Activity comment: Not applicable Patient left AMA Follow Up/Referral: Not applicable Patient left AMA Medications: Not applicable Patient left AMA Scheduled Amlodipine Besylate (Amlodipine Besylate), 5 MG PO DAILY, (Reported) Atorvastatin Calcium (Atorvastatin Calcium), 1 TAB PO DAILY, (Reported) Cholecalciferol (Gnp Vitamin D), 5,000 UNIT PO DAILY, (Reported) Clonazepam (Klonopin), 1 TAB PO PRN, (Reported) Clopidogrel Bisulfate (Clopidogrel), 1 TAB PO DAILY, (Reported) Meclizine Hcl (Meclizine Hcl), 25 MG PO PRN, (Reported) Metoprolol Succinate (Metoprolol Succinate Er), 50 MG PO DAILY, (Reported) Ondansetron HCl (Ondansetron), 4 MG PO PRN, (Reported) Pantoprazole Sodium Sesquihydr (Protonix), 40 MG PO DAILY, (Reported) Quetiapine Fumerate (Quetiapine Fumarate), 100 MG PO PRN, (Reported) 39 (Time taken for discharge summary 39 mts) Discharge Statement: "Patient was advised to return to the ER or call 911 if any headaches, dizziness, shortness of breath, chest pain, abdominal pain, bleeding, fevers, or worsening of medical condition. Patient was counseled about treatment plan, medications, possible side effects, patientverbalized understanding. All questions were answered to the best of my ability. This discharge took greater then 30 minutes in planning, reviewing documentation, counseling the patient, and discussing with other team members." ASSESSMENT ASSESSMENT Hospital Course Patient left AMA Assessment Date of Service: May 09, 2025 Billing Provider: STEVEN ROMERO MD Common Visit Codes: [id number] DISCH DAY >30min STEVEN ROMERO MD May 09, 2025 08:27
== END 2025-05-08 17:04 | disposition left against medical advice (07) | DRG 637 ==
LOC: ER 22:30 → OVERFLOW 05-07 02:55
PROVIDERS: ADMIT Family Medicine; ATTEND Family Medicine
DX: E11.65 Type 2 diabetes mellitus with hyperglycemia (principal); G93.41 Metabolic encephalopathy; E86.0 Dehydration; Z53.29 Procedure and treatment not carried out because of patient's decision for other reasons; Z79.4 Long term (current) use of insulin
CPT/HCPCS: 36415; 36600; 80053; 81001; 82805; 82962; 83036; 85025; 93005; 96360; 99291; G0378; J1815